=== PATIENT | male | born 1995 | race Two or more races ===

== ENCOUNTER 2019-11-07 10:21 | Emergency (ER) | payer OTHER ==
[~2019-11-07] VITALS: Ht 177.8 cm; Wt 110.3 kg
--- NOTE | 2019-11-07 11:07 | NUR ---
PT TO US
[2019-11-07 11:22] LABS: MICROSCOPIC NOT IND
--- NOTE | 2019-11-07 11:31 | NUR ---
PT RETURNED FROM US
[2019-11-07 11:47] LABS: BASOPHILS # (AUTO) 0.05 x10^3/uL (0-0.1); BASOPHILS % (AUTO) 1 % (0-1); EOSINOPHILS # (AUTO) 0.03 x10^3/uL (0-0.4); EOSINOPHILS % (AUTO) 1 % (1-7); LYMPHOCYTES # (AUTO) 2.58 x10^3/uL (1-3.4); LYMPHOCYTES % (AUTO) 47 % (22-44); MD NO; MEAN CORPUSCULAR HEMOGLOBIN 29.2 pg (27.5-34.5); MEAN CORPUSCULAR HGB CONC 33.9 g/dL (33.2-36.2); MEAN CORPUSCULAR VOLUME 86.2 fL (81-97); MEAN PLATELET VOLUME 8.3 fL (7.4-10.4); MONOCYTES # (AUTO) 0.31 x10^3/uL (0.2-0.8); MONOCYTES % (AUTO) 6 % (2-9); NEUTROPHILS # (AUTO) 2.51 x10^3/uL (1.8-6.8); NEUTROPHILS % (AUTO) 46 % (42-75); PLATELET COUNT 244 x10^3/uL (130-400); RED CELL DISTRIBUTION WIDTH 12.8 % (9.4-14.8)
[2019-11-07 11:57] VITALS: BP 175/98
--- NOTE | 2019-11-07 11:58 | NUR ---
Patient given discharge instructions and they have confirmed that they understand the instructions. Patient ambulatory with steady gait.
[2019-11-07 12:01] LABS: ALBUMIN 3.9 g/dL (3.4-5.0); ANION GAP 5 mmol/L (5-15); CALCIUM 9.1 mg/dL (8.5-10.1); CHLORIDE 109 mmol/L (98-107); CREATININE 1.07 mg/dL (0.7-1.3)
== END 2019-11-07 12:26 | disposition home or self-care (01) ==
LOC: ED 12:13
DX: I86.1 Scrotal varices (principal); N50.812 Left testicular pain; M54.5 Low back pain
CPT/HCPCS: 36415; 76870; 80048; 81003; 82040; 85025; 99284